=== PATIENT | female | born 1990 | race African-American/Black ===

== ENCOUNTER 2017-04-03 10:59 | Emergency (ER) | payer OTHER ==
[2017-04-03 11:14] VITALS: BP 102/67; PULSE 64; TEMP 98; BMI 21.7
[2017-04-03] MEDS ORDERED: IBUPROFEN 600 MG TABLET (FP) PO ONE ×2 (11:51→12:06)
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
== END 2017-04-03 13:15 | disposition home or self-care (01) ==
LOC: JERFT 10:59
DX: S16.1XXA Strain of muscle, fascia and tendon at neck level, initial encounter (principal); V43.52XA Car driver injured in collision with other type car in traffic accident, initial encounter; Y92.488 Other paved roadways as the place of occurrence of the external cause; Y93.89 Activity, other specified
CPT/HCPCS: 72070-TC; 84703; 99281-25

== ENCOUNTER 2018-11-03 19:06 | Emergency (ER) | payer OTHER ==
--- NOTE | 2018-11-03 19:13 | PDOC ---
Rapid Medical Evaluation Medical Evaluation: Allergies Allergy/AdvReac Type Severity Reaction Status Date / Time Penicillins Allergy Unknown Verified 04/03/17 11:10 I have performed a brief in-person evaluation of this patient. The patient presents with a chief complaint of: Chronic L sided CP x 1-2 years, worsening recently along with LUE numbness (also chronic in nature); denies fever, sob, URI sxs, recent travel, use of BCPs Pertinent physical exam findings: In NAD, lungs clear, +reproducible chest pain I have ordered the following: EKG, CXR; patient refused pain meds in triage The patient will proceed to the ED for further evaluation. 11/03/18 19:09
[2018-11-03 19:14] VITALS: BP 131/97; PULSE 85; TEMP 98; BMI 21.9
--- NOTE | 2018-11-03 21:17 | PDOC ---
History of Present Illness - General Chief Complaint: Chest Pain Stated Complaint: CHEST PAIN Time Seen by Provider: 11/03/18 20:40 - History of Present Illness Initial Comments: 11/03/18 21:14 27-year-old female without comorbidities presents for left arm pain 2 years increase only exacerbated over the last 2 days without any precipitating traumatic event and intermittent chest pain associated with her left arm pain when she moves her neck. No loss of bowel or bladder function. She states no possibility of Past History - Past Medical History Allergies/Adverse Reactions: Allergies Allergy/AdvReac Type Severity Reaction Status Date / Time Penicillins Allergy Unknown Verified 11/03/18 19:14 Home Medications: Ambulatory Orders Cyclobenzaprine HCl [Flexeril 10 mg] 10 mg PO HS PRN #10 tablet 11/03/18 Methylprednisolone [Medrol Dose Tiago] 4 mg PO ASDIR #21 tablet 11/03/18 COPD: No - Immunization History Immunization Up to Date: Yes - Suicide/Smoking/Psychosocial Hx Smoking Status: No Smoking History: Never smoked Have you smoked in the past 12 months: No Number of Cigarettes Smoked Daily: 0 Information on smoking cessation initiated: No Hx Alcohol Use: No Drug/Substance Use Hx: No Substance Use Type: None Review of Systems - Review of Systems Constitutional: No: Fever Cardiac (ROS): Yes: See HPI, Chest Pain Musculoskeletal: Yes: Neck Pain Neurological: Yes: Numbness *Physical Exam - Vital Signs Last Vital Signs Temp Pulse Resp BP Pulse Ox 98.0 F 85 20 131/97 100 11/03/18 19:10 11/03/18 19:10 11/03/18 19:10 11/03/18 19:10 11/03/18 19:10 - Physical Exam Comments: 11/03/18 21:14 HEAD: NC/AT EYES: Conjuntiva clear Ears: Canals and TM's normal NOSE: No d/c THROAT: Moist mucous membrances, oral pharanx clear, uvula midline NECK: Supple without adenopathy CARDIAC: S1 S2 tenderness about the left costochondral junction and about the areas of ribs 4 and 5 LUNGS: CTA Full and Equal breath sounds ABDOMEN: Soft NT ND MS: Full ROM in all joints without edema NEUROLOGIC: No gross sensory or motor deficits, NVID SKIN: Normal color and temperature no lesions or rashes Cervical spine skin color and temperature are normal range of motion is full and nonpainful. There is moderate left-sided paracervical musculature spasm and tenderness producing radicular symptoms. 5 out of 5 strength in bilateral lower extremities and upper extremities negative Spurling maneuver. She is neurovascularly intact. Moderate Sedation - Procedure Monitoring Vital Signs: Procedure Monitoring Vital Signs Temperature 98.0 F 11/03/18 19:10 Pulse Rate 85 11/03/18 19:10 Respiratory Rate 20 11/03/18 19:10 Blood Pressure 131/97 11/03/18 19:10 O2 Sat by Pulse Oximetry (%) 100 11/03/18 19:10 *DC/Admit/Observation/Transfer Diagnosis at time of Disposition: Cervical radiculopathy, Costochondral chest pain - Discharge Dispostion Disposition: HOME Condition at time of disposition: Stable Decision to Admit order: No - Prescriptions Prescriptions: Cyclobenzaprine HCl [Flexeril 10 mg] 10 mg PO HS PRN #10 tablet PRN Reason: Muscle Spasms Methylprednisolone [Medrol Dose Tiago] 4 mg PO ASDIR #21 tablet - Referrals Referrals: Nikolai Friedman MD [Staff Physician] - - Patient Instructions Printed Discharge Instructions: Costochondritis, DI for Costochondritis, DI for Cervical Radiculopathy Additional Instructions: Do not take anti-inflammatory such as Advil Motrin Aleve or ibuprofen while on the Medrol Dosepak. Please take the medication as directed. The muscle relaxers will make you sleepy its one tablet before bedtime. Follow-up with orthopedic spine surgery in 2-3 days for further evaluation and treatment options and return to the emergency room should symptoms worsen or go unresolved - Post Discharge Activity
--- NOTE | 2018-11-04 12:15 | EKG ---
Test Reason : Blood Pressure : / mmHG Vent. Rate : 076 BPM Atrial Rate : 076 BPM P-R Int : 118 ms QRS Dur : 074 ms QT Int : 374 ms P-R-T Axes : 023 043 033 degrees QTc Int : 420 ms NORMAL SINUS RHYTHM NORMAL ECG WHEN COMPARED WITH ECG OF 15-JAN-2014 20:21, VENT. RATE HAS DECREASED BY 45 BPM Confirmed by ALEC MA MD ([id number]) on 11/04/2018 12:14:29 PM Referred By: Confirmed By:ALEC MA MD
== END 2018-11-03 21:18 | disposition home or self-care (01) ==
LOC: JERFT 19:06
DX: M54.12 Radiculopathy, cervical region (principal); M94.0 Chondrocostal junction syndrome [Tietze]
CPT/HCPCS: 71046-TC-FY; 93005; 93010; 99281-25